=== PATIENT | male | born 1985 | race Caucasian/White ===

== ENCOUNTER 2017-04-23 11:00 | Emergency (ER) | payer OTHER ==
[~2017-04-23] VITALS: Ht 177.8 cm; Wt 86.6 kg
[~2017-04-23 11:00] MED LIST: ENDOCET 5-3251 EACH PO; MEN'S MULTI-VI1 EACH PO; PERCOCET 5/31 TABLET PO; ULTRAM50 MG PO
[2017-04-23] MEDS ORDERED: TYLENOL REGULA325 MG PO (11:07)
[2017-04-23] MEDS ORDERED: RIZATRIPTAN10 M1 PO (11:07)
[2017-04-23] MEDS ORDERED: BENADRYL25 MG PO (13:42)
[2017-04-23] MEDS ORDERED: REGLAN10 MG PO (13:42)
[2017-04-23] MEDS ORDERED: NAPROSYN500 MG PO (13:42)
[2017-04-23 13:50] VITALS: BP 145/99
== END 2017-04-23 13:50 | disposition home or self-care (01) ==
LOC: EME 11:00
DX: R51 Headache (principal); R11.0 Nausea; F12.90 Cannabis use, unspecified, uncomplicated; K21.9 Gastro-esophageal reflux disease without esophagitis; J45.909 Unspecified asthma, uncomplicated; F31.9 Bipolar disorder, unspecified
CPT/HCPCS: 99281; 99283; J1885

== ENCOUNTER 2017-09-16 18:20 | Emergency (ER) | payer OTHER ==
[~2017-09-16] VITALS: Ht 177.8 cm; Wt 86.4 kg
[~2017-09-16 18:20] MED LIST changes: +BENADRYL25 MG PO; +NAPROSYN500 MG PO; +REGLAN10 MG PO; +RIZATRIPTAN10 M1 PO; +TYLENOL REGULA325 MG PO
[2017-09-16] MEDS ORDERED: FLEXERIL10 MG PO (22:39)
[2017-09-16] MEDS ORDERED: NORCO 5/3251 TABLET PO (22:39)
[2017-09-17 01:06] VITALS: BP 145/80
== END 2017-09-17 01:08 | disposition home or self-care (01) ==
LOC: EME 18:20
DX: S39.012A Strain of muscle, fascia and tendon of lower back, initial encounter (principal); X50.0XXA Overexertion from strenuous movement or load, initial encounter; Y93.B9 Activity, other involving muscle strengthening exercises; Y92.39 Other specified sports and athletic area as the place of occurrence of the external cause; J45.909 Unspecified asthma, uncomplicated; K21.9 Gastro-esophageal reflux disease without esophagitis; F31.9 Bipolar disorder, unspecified; F12.90 Cannabis use, unspecified, uncomplicated
CPT/HCPCS: 72131; 99281; 99285; J2270

== ENCOUNTER 2018-03-19 12:12 | Day surgery (SDC) | payer OTHER ==
[~2018-03-19] VITALS: Ht 180.3 cm; Wt 81.6 kg
[~2018-03-19 12:12] MED LIST changes: +FLEXERIL10 MG PO; +NORCO 5/3251 TABLET PO
[2018-03-19 12:46] VITALS: BP 143/88
[2018-03-19 18:14] VITALS: BP 160/81
== END 2018-03-19 18:32 | disposition home or self-care (01) ==
LOC: SDC 12:12
PROC: 0SQD4ZZ Repair Left Knee Joint, Percutaneous Endoscopic Approach (ICD-10-PCS; principal; 2018-03-19)
DX: S83.212A Bucket-handle tear of medial meniscus, current injury, left knee, initial encounter (principal); M17.32 Unilateral post-traumatic osteoarthritis, left knee; X50.1XXA Overexertion from prolonged static or awkward postures, initial encounter
CPT/HCPCS: C1713; J0171; J0690; J1100; J1170; J1885; J2250; J2405; J2765; J3010